=== PATIENT | female | born 1975 | race African-American/Black ===

== ENCOUNTER 2023-11-13 18:08 | Emergency (ER) | payer MEDICAID ==
[~2023-11-13] VITALS: Ht 177.8 cm; Wt 131.0 kg
[2023-11-13 18:10] VITALS: TEMP 98.7; O2SAT 99
[2023-11-13 18:15] VITALS: BP 152/88; PULSE 110; RESP 20
[2023-11-13] MEDS: IBUPROFEN 600MG TABLET PO ONE (18:15)
== END 2023-11-13 20:44 | disposition home or self-care (01) ==
LOC: ER 18:08
DX: R51.9 Headache, unspecified (principal); E11.9 Type 2 diabetes mellitus without complications; Y08.89XA Assault by other specified means, initial encounter; Y93.89 Activity, other specified; Y92.89 Other specified places as the place of occurrence of the external cause; Y99.8 Other external cause status
CPT/HCPCS: 99282; Z7610 ×2